=== PATIENT | female | born 1980 | race Caucasian/White ===

== ENCOUNTER → 2020-09-13 16:05 | Outpatient (CLI) | payer BC, SELFPAY ==
--- NOTE | ~2020-09-13 | MM_ITS ---
EXAMINATION: MM screening bo BI w rodrick HISTORY: Screening mammogram TECHNIQUE: Craniocaudal and mediolateral oblique 3-D tomosynthesis images were obtained and synthetic 2-D images were generated. CAD analysis was submitted and interpreted. COMPARISON: No prior mammogram is available for comparison at this institution. BREAST PARENCHYMAL COMPOSITION: The breasts are extremely dense, which lowers the sensitivity of mamm ography. FINDINGS: In Approximately 8 mm outer mid to upper right intramammary lymph node. There is no evidence of suspicio us mass, calcification, or architectural distortion to suggest malignancy in either breast. There has been no suspicious interval change. IMPRESSION: 1. No mammographic evidence of malignancy. 2. Recommend routine screening mammography in one year. BI-RADS Category 2: Benign Reviewed, dictated and finalized at location A.
== END ==
PROVIDERS: PCP Nurse Practitioner Family; Visit Provider Obstetrics & Gynecology
DX: Z12.31 Encounter for screening mammogram for malignant neoplasm of breast (principal)
CPT/HCPCS: 77063; 77067

== ENCOUNTER → 2021-11-27 16:54 | Outpatient (CLI) | payer BC, SELFPAY ==
--- NOTE | ~2021-11-27 | MM_ITS ---
EXAMINATION: MM screening [facility] BI w rodrick HISTORY: Screening TECHNIQUE: Craniocaudal and mediolateral oblique 3-D tomosynthesis images were obtained and synthetic 2-D images were generated. CAD analysis was submitted and interpreted. COMPARISON: 09/13/2020 BREAST PARENCHYMAL COMPOSITION: There are scattered areas of fibroglandular density. FINDINGS: There are developing bilateral breast asymmetries in the upper outer quadrant of the left b reast and upper aspect of the right breast. There are benign bilateral breast calcifications. No arch itectural distortion. IMPRESSION: 1. Developing bilateral breast asymmetries. 2. Additional mammographic views and possible breast ultrasound are recommended. BI-RADS Category 0: Incomplete: Needs additional imaging evaluation. Reviewed, dictated and finalized at location A. IMPRESSION: 1. Developing bilateral breast asymmetries. 2. Additional mammographic views and possible breast ultrasound are recommended . BI-RADS Category 0: Incomplete: Needs additional imaging evaluation.
== END ==
PROVIDERS: PCP Nurse Practitioner Family; Visit Provider Obstetrics & Gynecology
DX: Z12.31 Encounter for screening mammogram for malignant neoplasm of breast (principal); R92.8 Other abnormal and inconclusive findings on diagnostic imaging of breast
CPT/HCPCS: 77063; 77067

== ENCOUNTER → 2021-12-25 14:09 | Outpatient (CLI) | payer BC, SELFPAY ==
--- NOTE | ~2021-12-25 | MMUS_ITS ---
EXAMINATION: MM diagnostic bo BI w rodrick, US breast BI limited HISTORY: Possible breast masses on screening mammogram TECHNIQUE: Additional 3-D tomosynthesis images of the breasts were performed and synthetic 2-D images were generated. CAD analysis was submitted and interpreted. High resolution limited bilateral breast ultrasound was performed. COMPARISON: 11/27/2021, 09/13/2020 FINDINGS: MAMMOGRAPHIC FINDINGS: There is a return to baseline fibroglandular appearance with spot compression of the breasts in the a reas questioned on screening mammogram. ULTRASOUND: There is no evidence of focal abnormal solid or cystic mass in the vicinity of the mammographic findi ngs in question. There is a 3 mm cyst in the upper outer quadrant of the left breast. IMPRESSION: 1. No mammographic or sonographic evidence of malignancy. 2. Recommend routine screening mammography in one year. BI-RADS Category 2: Benign finding(s). Reviewed, dictated and finalized at location A. IMPRESSION: 1. No mammographic or sonographic evidence of malignancy. 2. Recommend routine screening mammography in one year. BI-RADS Category 2: Benign finding(s).
== END ==
PROVIDERS: PCP Obstetrics & Gynecology; Visit Provider Obstetrics & Gynecology
DX: R92.8 Other abnormal and inconclusive findings on diagnostic imaging of breast (principal); N60.02 Solitary cyst of left breast
CPT/HCPCS: 76642; 77062; 77066; G0279

== ENCOUNTER 2023-06-12 14:53 | Outpatient (CLI) | payer BC, SELFPAY ==
--- NOTE | ~2023-06-12 | MM_ITS ---
EXAMINATION: MM screening bo BI w rodrick HISTORY: Screening mammogram TECHNIQUE: Craniocaudal and mediolateral oblique 3-D tomosynthesis images were obtained and synthetic 2-D images were generated. CAD analysis was submitted and interpreted. COMPARISON: 12/25/2021 diagnostic bilateral mammogram and Limited bilateral breast ultrasound examinat ion 11/27/2021, 09/13/2020 bilateral screening mammogram examinations BREAST PARENCHYMAL COMPOSITION: There are scattered areas of fibroglandular density. FINDINGS: 8 mm low-density circumscribed stable mass is again noted in the outer mid right breast, be nign in appearance. There is no evidence of suspicious mass, calcification, or architectural distorti on to suggest malignancy in either breast. There has been no suspicious interval change. IMPRESSION: 1. No mammographic evidence of malignancy. 2. Recommend routine screening mammography in one year. BI-RADS Category 1: Negative Reviewed, dictated and finalized at location [facility]. [facility]
== END 2023-06-12 14:54 ==
LOC: MICIMG 14:56
PROVIDERS: PCP Obstetrics & Gynecology; Visit Provider Obstetrics & Gynecology
DX: Z12.31 Encounter for screening mammogram for malignant neoplasm of breast (principal)
CPT/HCPCS: 77063; 77067

== ENCOUNTER 2023-09-17 16:23 | Outpatient (CLI) | payer BC, SELFPAY ==
--- NOTE | ~2023-09-17 | CT_ITS ---
EXAMINATION: CT abdomen pelvis wo con DATE: 09/17/2023 16:48 INDICATION: N20.0 - Calculus of kidney TECHNIQUE: Computed tomography (CT) of the abdomen and pelvis was performed without intravenous contr ast. Automated exposure control and iterative reconstruction technique were employed. The dose-length product was 723.50 mGy-cm. COMPARISON: 05/16/2016. FINDINGS: Lower thorax: 8 mm left lower lobe pulmonary nodule, stable since 2017, likely benign granuloma. Liver: Enlarged. Biliary/Gallbladder: Gallbladder is normal. No bile duct dilation. Pancreas: No mass or duct dilation. Spleen: Normal. Adrenals:No mass. Kidneys: No suspicious mass, obstructing stone, or hydronephrosis. Punctate nonobstructing left midpo le calcifications. No calcifications on the right. GI tract: No small or large bowel dilation. Normal appendix. Mesentery/Peritoneum: No ascites, mass, or free air. Retroperitoneum: No mass. Pelvis: Pelvic organs are within normal limits. Soft Tissues: Soft tissues and body wall unremarkable. Bones: No acute osseous finding. Chronic, stable, possibly physiologic anterior wedge deformity at L 1. Stable dystrophic calcification anterior to the right femoral neck. IMPRESSION: No acute abdominopelvic process detected. Specifically, there is no evidence of obstructive uropathy. Punctate, nonobstructing calcifications in the left renal midpole. Persistent hepatomegaly. Geographic hepatic steatosis is no longer appreciated. Reviewed, dictated and finalized at location K.
== END 2023-09-17 16:24 | disposition home or self-care (01) ==
LOC: ANHIMG 16:25
PROVIDERS: PCP Nurse Practitioner Family; Visit Provider Family Medicine
DX: N20.0 Calculus of kidney (principal); R16.0 Hepatomegaly, not elsewhere classified
CPT/HCPCS: 74176

== ENCOUNTER 2024-06-25 15:54 | Outpatient (CLI) | payer BC, SELFPAY ==
--- NOTE | ~2024-06-25 | MR_ITS ---
MRI of the lumbar spine Clinical History: Back pain Technique: Axial T2-weighted images, and sagittal T1-weighted, T2-weighted, and T2 fat-sat images wer e acquired. Findings: There are bilateral L5 pars interarticularis defects, with 7 mm anterolisthesis of L5 over S1. No acute fracture identified. No suspicious bone marrow signal abnormality seen. At L1-L2, there is no disc bulge or herniation. There is mild facet arthropathy. No central canal allegra nosis or neural foraminal narrowing. At L2-L3, there is no disc bulge or herniation. There is mild to moderate facet hypertrophy. No spina l canal stenosis or neural foraminal narrowing. At L3-L4, there is no disc bulge or herniation. There is mild facet arthropathy. No central canal allegra nosis or neural foraminal narrowing. At L4-L5, there is no disc bulge or herniation. There is mild facet arthropathy. No central canal allegra nosis or neural foraminal narrowing. At L5-S1, there is fused disc uncovering/bulge with associated superior extrusion at the right parace ntral region and at the left paracentral region. There is mild facet arthropathy. No central canal st enosis. There is severe bilateral neural foraminal compromise. Paravertebral soft tissues are unremarkable. Impression: Bilateral L5 pars interarticularis defects, with 7 mm anterolisthesis of L5 over S1. Disc herniations at the right paracentral and left paracentral regions at L5-S1, extending superiorly , which contribute to severe bilateral neural foraminal narrowing at this level. Reviewed, dictated and finalized at [facility]. Impression: Bilateral L5 pars interarticularis defects, with 7 mm anterolisthesis of L5 ove r S1. Disc herniations at the right paracentral and left paracentral regions at L5-S1 , extending superiorly, which contribute to severe bilateral neural foraminal n arrowing at this level.
== END 2024-06-25 15:55 | disposition home or self-care (01) ==
LOC: MICIMG 15:55
PROVIDERS: PCP Nurse Practitioner Family; Visit Provider Nurse Practitioner Family
DX: M43.17 Spondylolisthesis, lumbosacral region (principal)
CPT/HCPCS: 72148

== ENCOUNTER 2024-08-24 15:32 | Outpatient (CLI) | payer BC, SELFPAY ==
--- NOTE | ~2024-08-24 | MM_ITS ---
EXAMINATION: MM screening bo BI w rodrick HISTORY: Screening TECHNIQUE: Craniocaudal and mediolateral oblique 3-D tomosynthesis images were obtained and synthetic 2-D images were generated. CAD analysis was submitted and interpreted. COMPARISON: Comparison to multiple prior studies sequentially, with oldest reviewed study dated 11/2020. BREAST PARENCHYMAL COMPOSITION: Not dense: There are scattered areas of fibroglandular density. FINDINGS: There is no evidence of suspicious mass, calcification, or architectural distortion to sugg est malignancy in either breast. There has been no suspicious interval change. IMPRESSION: 1. No mammographic evidence of malignancy. 2. Recommend routine screening mammography in one year. BI-RADS Category 1: Negative Reviewed, dictated and finalized at location B.
== END 2024-08-24 15:33 | disposition home or self-care (01) ==
LOC: MICIMG 15:33
PROVIDERS: PCP Nurse Practitioner Family; Visit Provider Obstetrics & Gynecology
DX: Z12.31 Encounter for screening mammogram for malignant neoplasm of breast (principal)
CPT/HCPCS: 77063; 77067